=== PATIENT | female | born 1950 | race Hispanic/Latino ===

== ENCOUNTER 2016-08-30 08:25 | Outpatient (CLI) | payer MEDICARE ==
[2016-08-30 08:57] LABS: Hematocrit 38.9 % (30.3-42.9); Hemoglobin 13.3 gm/dl (10.1-14.3); Mean Corpuscular HGB Conc 34 % (30-34); Mean Corpuscular Hemoglobin 33 pg (28-32); Mean Corpuscular Volume 96 fl (79-97); Platelet Count 397 K/mm3 (140-440); Red Blood Count 4.03 M/mm3 (3.65-5.03); Red Cell Distribution Width 14.3 % (13.2-15.2); White Blood Count 8.3 K/mm3 (4.5-11.0)
[2016-08-30 09:24] LABS: Alanine Aminotransferase 9 units/L (7-56); Albumin 4.1 g/dL (3.9-5); Albumin/Globulin Ratio 1.4 %; Alkaline Phosphatase 95 units/L (35-129); Anion Gap 17 mmol/L; BUN/Creatinine Ratio 15.71; Blood Urea Nitrogen 11 mg/dL (7-17); Calcium 8.7 mg/dL (8.4-10.2); Carbon Dioxide 26 mmol/L (22-30); Chloride 101.5 mmol/L (98-107); Glucose 102 mg/dL (65-100); Potassium 3.9 mmol/L (3.6-5.0); Sodium 141 mmol/L (137-145); Total Protein 7.1 g/dL (6.3-8.2)
[2016-08-30 10:12] LABS: Blastocytes % (Manual) 0 %
[2016-08-30 10:13] LABS: Diff Status Complete; Platelet Estimate Consistent w Auto; RBC Morphology Normal
[2016-09-01 06:26] LABS: Vitamin D, 25-OH, Total 31 ng/mL (30-100)
== END 2016-08-30 08:26 | disposition home or self-care (01) ==
LOC: LAB 08:25
PROVIDERS: ATTEND Psychiatry & Neurology Psychiatry
DX: F33.3 Major depressive disorder, recurrent, severe with psychotic symptoms (principal); E44.0 Moderate protein-calorie malnutrition
CPT/HCPCS: 36415; 80053; 82306; 82607; 82747; 84443; 85007; 85025

== ENCOUNTER 2018-09-24 12:43 | Observation (INO) | payer MEDICARE ==
[2018-09-24 14:09] LABS: Basophils # (Auto) 0.1 K/mm3 (0.0-0.1); Basophils % (Auto) 0.9 % (0.0-1.8); Eosinophils # (Auto) 0.1 K/mm3 (0.0-0.4); Eosinophils % (Auto) 0.5 % (0.0-4.3); Hematocrit 36.5 % (30.3-42.9); Hemoglobin 11.9 gm/dl (10.1-14.3); Lymphocytes # (Auto) 2.3 K/mm3 (1.2-5.4); Lymphocytes % (Auto) 19.3 % (13.4-35.0); Mean Corpuscular HGB Conc 33 % (30-34); Mean Corpuscular Volume 90 fl (79-97); Monocytes # (Auto) 0.9 K/mm3 (0.0-0.8); Monocytes % (Auto) 7.8 % (0.0-7.3); Platelet Count 441 K/mm3 (140-440); Red Blood Count 4.07 M/mm3 (3.65-5.03); Red Cell Distribution Width 14.1 % (13.2-15.2)
[2018-09-24 14:26] LABS: INR 1.06 (0.87-1.13); Partial Thromboplastin Time 37.5 Sec. (24.2-36.6)
[2018-09-24 14:31] LABS: BUN/Creatinine Ratio 20; Blood Urea Nitrogen 12 mg/dL (7-17); Calcium 8.7 mg/dL (8.4-10.2); Hemolysis Index 0
--- NOTE | 2018-09-24 15:00 | Anesthesia Day of Surgery ---
Anesthesia Day of Surgery - Day of Surgery Patient Examined: Yes Patient H&P Reviewed: Yes Patient is NPO: Yes
--- NOTE | 2018-09-24 15:01 | Anesthesia Consultation ---
Anesthesia Consult and Med Hx Date of service: 09/24/18 - Airway Anesthetic Teeth Evaluation: Edentulous ROM Head & Neck: Adequate Mental/Hyoid Distance: Adequate Mallampati Class: Class I Intubation Access Assessment: Good - Pre-Operative Health Status ASA Pre-Surgery Classification: ASA3 Proposed Anesthetic Plan: General, MAC - Pulmonary Hx Smoking: Yes - Cardiovascular System Hx Hypertension: No Hx Coronary Artery Disease: Yes Hx Heart Attack/AMI: Yes ([place] 2017 and two stents) Hx Peripheral Vascular Disease: Yes - Central Nervous System Hx Psychiatric Problems: Yes - Endocrine Hx Non-Insulin Dependent Diabetes: No - Other Systems Hx Cancer: No
[2018-09-24] MEDS: SODIUM CHLORIDE 0.9% 500 ML 500 ML IV SCH (15:10)
[2018-09-24] MEDS ORDERED: HEPARIN/NS 5000 UNIT/500ML 1,000 ML IR ONE (15:15)
[2018-09-24] MEDS ORDERED: HEPARIN 10,000 UNITS/10 ML VIAL ONE (15:16)
[2018-09-24] MEDS ORDERED: ceFAZolin/Water 2 GM/20 ML 2 GM/20 ML SYRINGE IV ONE (15:16)
[2018-09-24] MEDS ORDERED: LIDOCAINE MPF (2%) 20 MG/1 ML VIAL 5 ML ONE (15:29)
[2018-09-24] MEDS ORDERED: MIDAZOLAM 2 MG/2 ML INJ ONE ×2 (15:29→16:44)
[2018-09-24] MEDS ORDERED: HYDROmorphone 1 MG/1 ML INJ ONE (15:29)
[2018-09-24] MEDS ORDERED: PROPOFOL 1,000 MG/100 ML BOTTLE IV ONE (15:32)
[2018-09-24] MEDS ORDERED: NITROGLYCERIN SYRINGE 3 ML ONE ×2 (16:01→17:07)
[2018-09-24] MEDS ORDERED: VERAPAMIL 5 MG/2 ML INJ ONE (16:01)
[2018-09-24] MEDS: LIDOCAINE (2%) 20 MG/1 ML VIAL 20 ML MDV INFILTRATI ONE ×3 (16:14→16:52)
[2018-09-24] MEDS ORDERED: KETAMINE 500 MG/5 ML VIAL MDV ONE (16:44)
[2018-09-24] MEDS ORDERED: SODIUM CHLORIDE 0.9% 1000 ML 1,000 ML ONE ×2 (17:11→18:10)
[2018-09-24] MEDS ORDERED: MORPHINE 2 MG/1 ML INJ IV PRN (19:31)
[2018-09-24] MEDS ORDERED: CLOPIDOGREL 300 MG TAB PO ONE (19:33)
--- NOTE | 2018-09-24 19:39 | Short Stay Summary ---
Short Stay Documentation Date of service: 09/24/18 Narrative H&P: Patient with extensive PAD. Right great toe ulcer and rest pain - History H&P: obtained from office Past Medical History: acute [place], PVD Past Surgical History: appendectomy, Other (Knee surgery) Social history: single - Allergies and Medications Current Medications: Allergies No Known Allergies Allergy (Unverified 12/30/12 15:14) Home Medications Medication Instructions Recorded Confirmed Last Taken Type Gabapentin [Neurontin] 600 mg PO BID 09/24/18 09/24/18 09/23/18 History 600mg Ibuprofen [Motrin 800 MG tab] 2 tab PO Q6H PRN 09/24/18 09/24/18 09/23/18 History 2 tab Pregabalin [Lyrica] 1 tab PO QAM 09/24/18 09/24/18 09/23/18 History 1 tab Pregabalin [Lyrica] 2 tab PO QPM 09/24/18 09/24/18 09/23/18 History 2 tab Active Medications Clopidogrel Bisulfate (Plavix) 300 mg PO ONCE ONE Stop: 09/24/18 19:34 Sodium Chloride (Nacl 0.9% 500 Ml) 500 mls @ 50 mls/hr IV DIRECT MARK Last Admin: 09/24/18 15:10 Dose: 50 mls/hr Documented by: Morphine Sulfate (Morphine) 2 mg IV Q4H PRN PRN Reason: Pain, Moderate (4-6) - Physical exam General appearance: no acute distress HEENT: PERRLA Lungs: Clear to auscultation Breasts: deferred Heart: Regular rate Gastrointestinal: normal Female Genitourinary: deferred Rectal Exam: deferred Extremities: abnormal (Right great toe ulcer. Non-palpable pulses) Neurological: Normal gait - Brief post op/procedure progress note Date of procedure: 09/24/18 Pre-op diagnosis: Right SFA and popliteal occlusion. Post-op diagnosis: same Procedure: Right lower extremity arteriogram with revascularizatioin of the femoral- popliteal segment and AT Anesthesia: MAC Findings: See Op report Surgeon: ANGELICA BUSH Estimated blood loss: minimal Pathology: none Condition: stable - Hospital course Hospital course: No immediate complications. 23 hr observation - Disposition [id number] IP Short Stay Discharge Plan Follow up with: HERMELINDA DALTON MD [Primary Care Provider] - 7 Days
[2018-09-24] MEDS ORDERED: CLOPIDOGREL 300 MG TAB ONE (19:48)
[2018-09-25] MEDS: MORPHINE 2 MG/1 ML INJ IV PRN ×3 (01:00→09:16)
[2018-09-25] MEDS: SODIUM CHLORIDE 0.9% 500 ML 500 ML IV SCH (01:20)
--- NOTE | 2018-09-25 07:09 | Post Anesthesia Evaluation ---
- Post Anesthesia Evaluation Patient Participated: Yes Airway Patent: Yes Stable Respiratory Function: Yes Nausea/Vomiting: No Temp > 96.8F: Yes Pain Manageable: Yes Adequeate Hydration: Yes Anesthesia Complications: No Block Receding Appropriately: Not Applicable Patient on Ventilator: No
[2018-09-25 08:04] VITALS: BP 110/60
--- NOTE | 2018-09-25 10:58 | Progress Note ---
Assessment and Plan 1. S/P Day one revascularization of RLE. Signficant improvement in clinical exam 2. Sent in prescription for plaivix 75 mg daily. Also instructed to take an 81 mg ASA 3. F/U with Dr. Farmer for foot care 4. F/U in our office in one month. Subjective Date of service: 09/25/18 Principal diagnosis: Right foot rest pain with right great toe ulcer Interval history: Patient is s/p day one after having arteriogram with revascularization of the right lower extremity. Objective - Exam Narrative Exam: Patient was resting comfortably with no new complaints. Anxious to be discharged. No pain. Ambulating to the bathroom. Patient states her right foot feels warmer - Constitutional Vitals: Vital Signs - 12hr 09/25/18 09/25/18 09/25/18 00:31 01:00 01:30 Temperature 98.8 F Pulse Rate 71 Pulse Rate [ Right Radial] Respiratory 20 20 20 Rate Respiratory Rate [Right Toe ] Blood Pressure 108/58 O2 Sat by Pulse 94 Oximetry 09/25/18 09/25/18 09/25/18 06:25 06:37 06:38 Temperature 99.5 F Pulse Rate 83 85 Pulse Rate [ Right Radial] Respiratory 20 30 H Rate Respiratory Rate [Right Toe ] Blood Pressure 110/62 O2 Sat by Pulse 92 93 Oximetry 09/25/18 09/25/18 09/25/18 06:55 07:49 08:00 Temperature 98.5 F Pulse Rate 84 Pulse Rate [ Right Radial] Respiratory 20 18 Rate Respiratory 18 Rate [Right Toe ] Blood Pressure 110/60 O2 Sat by Pulse 97 Oximetry 09/25/18 09/25/18 08:44 09:16 Temperature Pulse Rate Pulse Rate [ 84 Right Radial] Respiratory 18 20 Rate Respiratory Rate [Right Toe ] Blood Pressure O2 Sat by Pulse 97 Oximetry General appearance: Present: no acute distress - EENT Eyes: PERRL ENT: hearing intact - Neck Neck: normal ROM - Respiratory Respiratory effort: normal - Breasts Breasts: deferred - Cardiovascular Rhythm: regular Extremities: no ischemia (Right dorsalis pedis pules 2+. Increased warmth in foot. Increased rubor.), No edema, abnormal (Rigth great toe dorsal ulceration measuring 1.5 cm is dry with scab present. ) - Gastrointestinal General gastrointestinal: Present: soft, non-tender Rectal Exam: deferred - Genitourinary Female genitourinary: deferred - Psychiatric Psychiatric: appropriate mood/affect - Labs CBC & Chem 7: 09/24/18 02:06 09/24/18 13:58 Labs: Abnormal lab results 09/24/18 09/24/18 09/24/18 Range/Units 02:06 13:58 13:58 WBC 11.9 H (4.5-11.0) K/mm3 Plt Count 441 H (140-440) K/mm3 Pender % (Auto) 7.8 H (0.0-7.3) % Pender # 0.9 H (0.0-0.8) K/mm3 Seg Neutrophils % 71.5 H (40.0-70.0) % Seg Neutrophils # 8.5 H (1.8-7.7) K/mm3 APTT 37.5 H (24.2-36.6) Sec. Potassium 3.5 L (3.6-5.0) mmol/L Carbon Dioxide 20 L (22-30) mmol/L Creatinine 0.6 L (0.7-1.2) mg/dL Medications & Allergies - Medications Allergies/Adverse Reactions: Allergies No Known Allergies Allergy (Unverified 12/30/12 15:14) Home Medications: Home Medications Medication Instructions Recorded Confirmed Last Taken Type Gabapentin [Neurontin] 600 mg PO BID 09/24/18 09/24/18 09/23/18 History 600mg Ibuprofen [Motrin 800 MG tab] 2 tab PO Q6H PRN 09/24/18 09/24/18 09/23/18 History 2 tab Pregabalin [Lyrica] 1 tab PO QAM 09/24/18 09/24/18 09/23/18 History 1 tab Pregabalin [Lyrica] 2 tab PO QPM 09/24/18 09/24/18 09/23/18 History 2 tab Active Medications: Generic Name Dose Route Start Last Admin Trade Name Freq PRN Reason Stop Dose Admin Sodium Chloride 500 mls @ 50 mls/hr 09/24/18 14:00 09/25/18 01:20 Nacl 0.9% 500 Ml IV 50 mls/hr DIRECT MARK Administration Morphine Sulfate 2 mg 09/25/18 00:58 09/25/18 09:16 Morphine IV 2 mg Q2H PRN Administration Pain, Moderate (4-6) Pneumococcal Polyvalent Vaccine 0.5 ml 09/25/18 12:00 Pneumovax 23 IM 09/25/18 12:01 .ONCE ONE
[2018-09-25] MEDS ORDERED: PNEUMOCOCCAL 23 Valent 0.5 ML VIAL IM ONE (12:00)
--- NOTE | 2018-10-18 01:02 | Operative Report ---
PROCEDURE: Right lower extremity runoff with right SFA atherectomy and stent placement as well as right anterior tibial artery angioplasty. INDICATION: Right toe ulcer and right foot rest pain. SURGEON: Dr. Ko. CONTRAST: 150 mL of Omnipaque. MEDICATIONS: Heparin 7000 units intravenously and 400 mcg of nitroglycerin intra-arterial. FLUOROSCOPY TIME: 31.2 minutes and 311 milligrays. TECHNIQUE: Following informed and written consent, the patient was placed supine on the angiographic table. The left groin as well as the right foot and ankle were prepped and draped in the usual sterile fashion. Using ultrasound guidance, the left common femoral artery was identified as patent and an image was obtained. Lidocaine was used for local anesthetic. A micropuncture access set was utilized to access the left common femoral artery and a 5-[place] vascular sheath initially placed. A guidewire with a RIM catheter was utilized to cross over to the contralateral side and a 4-[place] vertebral catheter was advanced over the Glidewire and positioned within the common femoral artery. Contrast was injected to evaluate the common femoral artery and proximal SFA. The catheter was then advanced into the mid SFA and evaluation to the foot was performed. An Amplatz guidewire was then advanced and positioned within the SFA and the catheter was then removed and a crossover 7-B[place] sheath advanced into position within the common femoral artery. A 0.01-inch guidewire was advanced across the area of occlusion; however, was unsuccessful in crossing the entire occlusion. At this point, the right dorsalis pedis artery was accessed using a micropuncture access set and using ultrasound guidance. A 4-B[place] sheath was inserted and a 0.014 inch guidewire along with a crossing catheter was utilized to advance retrograde through the anterior tibial artery and area of occlusion in the distal popliteal and superficial femoral arteries. At this point, a 0.014-inch second wire was advanced from above and utilized to cross through the area of occlusion. A [employer] atherectomy catheter was utilized to perform atherectomy of the SFA including the popliteal artery in the area of occlusion. A 5 x 220 mm balloon was utilized to dilate the proximal popliteal and SFA arteries and then an IN.PACT drug-coated balloon 5 x 150 mm was utilized to dilate the proximal and mid SFA areas. Subsequently, a 4 x 150 mm IN.PACT balloon was utilized to dilate the popliteal artery. Post-dilatation, angiogram was performed, and at this point, a 6 x 120 mm stent was deployed in the proximal popliteal artery and distal SFA. Following stent deployment, post-dilatation to 5 mm was performed. Contrast was injected to evaluate flow through the stent and distally. At this point, a 3 x 220 mm angioplasty balloon was advanced into the anterior tibial artery and the entire length of the anterior tibial artery was dilated. The remained residual stenoses in the distal anterior tibial and dorsalis pedis, a 2 x 80 mm balloon was utilized to dilate these areas. The existing pedal sheath was removed and final post-images were obtained. Following completion, the left groin sheath access site was removed and manual compression applied until adequate hemostasis was achieved. The patient tolerated the procedure well and was discharged following adequate recovery time. FINDINGS: There is extensive atherosclerotic disease throughout the right SFA including proximally. There is an occlusion of the distal SFA with reconstitution of the popliteal artery above the knee with narrowing of the distal popliteal artery. The anterior tibial artery is diffusely diseased with occlusion distally. The peroneal artery is the main runoff with communicating branches providing reconstitution of the distal anterior tibial artery and dorsalis pedis. The posterior tibial artery is occluded proximally. There is a communicating branch extending into the posterior tibial artery distribution distally with no visible posterior tibial artery distally. Following atherectomy and angioplasty with drug-coated balloon proximally as well as stent placement in the distal SFA and proximal popliteal artery, there is a good angiographic result. There is also a good angiographic result following popliteal artery, balloon angioplasty with drug-coated balloon. The anterior tibial artery and dorsalis pedis demonstrate inline flow following balloon angioplasty as referenced above. There is also diffuse disease involving the left external iliac artery with areas of narrowing and stenosis. No intervention was performed at this time due to the patient being asymptomatic on the side. IMPRESSION: 1. 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 A good result with resolution of stenosis involving the superficial femoral artery and the occlusion of the distal superficial femoral artery utilizing stent placement and drug-coated balloon. 2. Narrowing of the popliteal artery with good result following balloon angioplasty with a drug-coated balloon. 3. Occlusion of the right anterior tibial artery with inline flow established following balloon angioplasty. JOB# [id number] SKS/NTS
== END 2018-09-25 11:13 | disposition short-term general hospital (02) ==
LOC: CATHLABREC 12:43 → 2B-ACE 15:45
PROVIDERS: ADMIT Radiology Vascular & Interventional Radiology; ATTEND Radiology Vascular & Interventional Radiology
DX: I73.9 Peripheral vascular disease, unspecified (principal); L97.519 Non-pressure chronic ulcer of other part of right foot with unspecified severity; R79.1 Abnormal coagulation profile
CPT/HCPCS: 36415; 37227; 37228; 75710; 76937; 80048; 85025; 85347; 85610; 85730; 96374; 96376; C1724; C1725; C1769; C1884; C1887; C2623; G0378; J0690; J1170; J1644; J2250; J2270; J2704; J7030; J7040; 90732; Q9967